=== PATIENT | male | born 1995 ===

== ENCOUNTER 2021-09-15 19:09 | Emergency (ER) | payer OTHER ==
[2021-09-15] MEDS ORDERED: Ketorolac 30 MG/ML SDV IM STA (20:03)
--- NOTE | 2021-09-15 21:00 | CR ---
INDICATION: Fall from 10 feet yesterday, left hip and pelvic pain TECHNIQUE: Single view pelvis with AP and Frogleg views left hip COMPARISONS: None available. FINDINGS: Femoral heads are well-seated in the acetabula. There is no displaced fracture, dislocation or acute osseous abnormality. There is no significant degenerative change. The soft tissues are unremarkable. IMPRESSION: No acute osseous abnormality. Dictated by Tristin Luevano MD @ 09/15/2021 8:57:55 PM (Electronically Signed)
--- NOTE | 2021-09-15 21:35 | CT ---
INDICATION: Left lateral lumbar pain after fall. COMPARISON: Pelvis and left hip examination from today. TECHNIQUE: CT examination of the lumbar spine is performed with spiral technique without contrast. Two mm thick axial, sagittal and coronal reconstructions were made. Please note that all CT scans at this facility use dose modulation, iterative reconstruction, and/or weight-based dosing when appropriate to reduce radiation dose to as low as reasonably achievable. FINDINGS: : There is grade 1 anterior subluxation of L5 on S1 related to bilateral pars interarticularis defects. There is moderate L5-S1 disc degenerative disease. There is a mild broad L5-S1 disc herniation which disc not result in spinal stenosis. There is prominent compression of both L5 nerve roots in the L5-S1 neural foramina produced by prominent bilateral foraminal zone disc bulges associated with the anterior subluxation. The perineural fat is completely effaced from around both L5 nerve roots. The rest of the lumbar vertebral bodies are in anatomic alignment. The lumbar vertebral bodies are normal in height with no sign of any compression fracture. There is no sign of any fracture of the posterior elements in the lumbar spine. The rest of the intervertebral discs are normal in height. There is no sign of additional disc bulge or herniation. There is no sign of any additional foraminal zone disc bulging. The visualized abdominal viscera is normal in appearance. IMPRESSION: No sign of acute osseous injury to the lumbar spine. Grade 1 anterior subluxation of L5 on S1 resulting from bilateral pars interarticularis defects. Prominent compression of both L5 nerve roots in the L5-S1 neural foramina from prominent bilateral foraminal zone disc bulging related to the anterior subluxation. Please note that all CT scans at this facility use dose modulation, iterative reconstruction, and/or weight-based dosing when appropriate to reduce radiation dose to as low as reasonably achievable. Dictated by Talon Ariza MD @ 09/15/2021 9:34:32 PM (Electronically Signed)
[2021-09-15] MEDS ORDERED: Cyclobenzaprine 10 MG Tab PO ONE (21:48)
--- NOTE | 2021-09-15 21:51 | EDM.PDOC ---
ED HPI GENERAL MEDICAL PROBLEM - General Chief Complaint: Back Pain or Injury Stated Complaint: FELL AT WORK YESTERDAY Time Seen by Provider: 09/15/21 19:20 - History of Present Illness INITIAL COMMENTS - FREE TEXT/NARRATIVE: CHIEF COMPLAINT(S): Left hip and back pain HISTORY OF PRESENT ILLNESS: This is a 26-year-old man without any significant past medical history who comes to the emergency department with a chief complaint of left hip and back pain. 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 He states that he fell approximately 10 feet and did hit the back of his head but denied any loss of consciousness. He currently denies any neck pain, bowel incontinence, urinary incontinence, saddle anesthesia. He states that he is mainly experiencing pain in his left hip and left lower back. He currently rates his pain as 6 out of 10 and this pain does not radiate anywhere. He has not yet tried anything for pain other than ibuprofen which has not helped. There is exacerbating factors including movement. He denies any numbness, tingling or weakness. He denies any chest pain or shortness of breath. REVIEW OF SYSTEMS: Constitutional: Denies fever, chills. Eyes: Denies eye pain Ears, Nose, Mouth, & Throat: Denies earache Cardiovascular: Denies chest pain Respiratory: Denies shortness of breath Gastrointestinal: Denies abdominal pain, nausea, vomiting, diarrhea, hematochezia. Genitourinary: Denies hematuria Skin:Denies a rash MSK: Positive for left hip and left lower back pain Neurological: Denies blurred vision, numbness, tingling, weakness, head injury or loss of consciousness Psychiatric: Denies depression PAST MEDICAL HISTORY: As per history of present illness and as reviewed below otherwise noncontributory. SURGICAL HISTORY: As per history of present illness and as reviewed below otherwise noncontributory. SOCIAL HISTORY: As per history of present illness and as reviewed below otherwise noncontributory. FAMILY HISTORY: As per history of present illness and as reviewed below otherwise noncontributory. EXAMINATION OF ORGAN SYSTEMS/BODY AREAS: Constitutional: Blood pressure was 143/86, heart rate 91, respiratory rate 18 with an oxygen saturation 98% on room air. Temperature 36.3 General: Young man who does not appear to be in acute distress Psychiatric: Appropriate mood and affect. Eyes: No scleral icterus or conjunctival erythema ENMT: Moist mucous membranes. No pharyngeal erythema no stridor, drooling, trismus Cardiovascular: Regular, rate, and rhythm. No gallops, murmurs, or rubs. Bilateral upper extremity pulses symmetric and intact. No peripheral edema. No JVD. Respiratory: Lungs clear to auscultation bilaterally. No wheezes, rales, or rhonchi. Gastrointestinal: Soft, non-tender, non-distended. Normoactive bowel sounds Genitourinary: No suprapubic tenderness Musculoskeletal: Normal range of motion. There is no cervical, thoracic, or lumbar tenderness. There is left hip tenderness and superior pelvic girdle tenderness. There is left paraspinal tenderness on the lumbar region. Skin: No lesions or abrasions. Neurological: Alert, GCS 15 distal sensation is intact. Gait is normal. MEDICAL DECISION MAKING AND COURSE IN THE ED WITH INTERPRETATION/REVIEW OF DIAGNOSTIC STUDIES: This is a 26-year-old man without any significant past medical history who comes to the emergency department with left hip and left lower paraspinal muscle tenderness. At this time we will obtain a left hip and pelvic x-ray. I do not believe any lumbar x-rays are needed given that there is no midline tenderness however the patient insists on obtaining imaging. Will obtain a CT of his lumbar spine without contrast for further evaluation of any abnormality. We will provide the patient with Toradol for pain relief and provide him with Flexeril for muscle relaxants. DDx: Musculoskeletal strain, hip fracture The radiological images were viewed by myself along with reading the report from the radiologist. Left hip with pelvis does not reveal any fracture or dislocation. Lumbar CT without contrast does not reveal any fracture or dislocation. There is evidence of a disc bulge compressing both L5 nerve roots. After imaging I did discuss results with patient. I discussed symptomatic treatment at this home and exercises. At this time I did discuss that he should follow-up with his primary care physician for reevaluation. He was amenable discharge at this time and had no further questions. He was given strict return precautions DISPOSITION: The patient was discharged home in stable condition. The patient will follow up with primary care physician in 3 to 5 days CONDITION: Fair PROCEDURES: None FINAL IMPRESSION(S)/DIAGNOSES: 1. Acute mechanical fall 2. Acute left hip contusion 3. Acute lumbar bulging disc Yonny Pizano M.D. back Pain Score (Numeric/FACES): 6 - Related Data Allergies Allergy/AdvReac Type Severity Reaction Status Date / Time No Known Allergies Allergy Verified 09/15/21 19:27 Home Meds: Home Meds Acetaminophen [Tylenol Extra Strength] 1,000 mg PO Q6HR #56 tablet 09/15/21 [Rx] Ibuprofen 400 mg PO Q6HR #28 tablet 09/15/21 [Rx] methocarbamoL [Methocarbamol] 1,500 mg PO TID #42 tablet 09/15/21 [Rx] Past Medical History - Past Health History Medical/Surgical History: Denies Medical/Surgical History - Infectious Disease History Infectious Disease History: Reports: Chicken Pox Social & Family History - Family History Family Medical History: No Pertinent Family History - Tobacco Use Tobacco Use Status *Q: Current Some Day Tobacco User Years of Tobacco use: 8 Packs/Tins Daily: 0.2 - Caffeine Use Caffeine Use: Reports: Coffee, Soda - Recreational Drug Use Recreational Drug Use: No ED ROS GENERAL - Review of Systems Review Of Systems: See Below ED EXAM, GENERAL - Physical Exam Exam: See Below Course - Vital Signs Last Recorded V/S: Last Vital Signs Temp 36.3 C 09/15/21 19:23 Pulse 81 09/15/21 22:14 Resp 18 09/15/21 22:14 BP 123/65 09/15/21 22:14 Pulse Ox 95 09/15/21 22:14 - Orders/Labs/Meds Meds: Medications Discontinued Medications Generic Name Dose Route Start Last Admin Trade Name Meera PRN Reason Stop Dose Admin Cyclobenzaprine HCl 10 mg 09/15/21 21:48 09/15/21 21:56 Cyclobenzaprine 10 Mg Tab PO 09/15/21 21:49 10 mg ONETIME ONE Administration Ketorolac Tromethamine 30 mg 09/15/21 20:03 09/15/21 20:14 Ketorolac 30 Mg/Ml Sdv IM 09/15/21 20:04 30 mg ONETIME STA Administration Departure - Departure Time of Disposition: 21:50 Disposition: Home, Self-Care 01 Condition: Fair Clinical Impression: Contusion, hip, Bulging disc - Discharge Information *PRESCRIPTION DRUG MONITORING PROGRAM REVIEWED*: No *COPY OF PRESCRIPTION DRUG MONITORING REPORT IN PATIENT DAVID: No Prescriptions: Ibuprofen 400 mg PO Q6HR #28 tablet methocarbamoL [Methocarbamol] 1,500 mg PO TID #42 tablet Acetaminophen [Tylenol Extra Strength] 1,000 mg PO Q6HR #56 tablet Instructions: Contusion, [id number], Herniated Disk, [id number], Herniated Disk Rehab-SportsMed Referrals: PCP,None [Primary Care Provider] - Forms: ED Department Discharge Additional Instructions: You were evaluated today on an emergent basis. At this time he did not have any evidence of any broken bones. There is some evidence of a disc bulge in your lower back. It is hard to tell if this is from the fall or if this was from prior to the injury. However I recommend use Tylenol and Motrin as described below in addition to Robaxin for symptomatic relief. If you have any trouble urinating, defecating on yourself, or you have numbness after using #2 I want you to return to the emergency department. Otherwise it is important that you rest and follow-up with your primary care physician in 3 to 5 days for reevaluation. Please use: Tylenol 500-1000mg every 6 hours (DO NOT TAKE MORE THAN 4000mg in 1 day) Ibuprofen 400mg every 6 hours (Take with food as it can cause ulcers, GI upset) Example schedule: 8:00 AM (Tylenol 500-1000mg) 11:00 AM (Ibuprofen 400mg) 2:00 PM (Tylenol 500-1000mg) 5:00 PM (Ibuprofen 400mg) In addition to Tylenol and Motrin you may use over the counter creams such as Voltaren Cream or Lidocaine Cream (Lidoderm) as needed 4 times a day for symptomatic relief. Ice the area 20 minutes 4 times per day [facility] [address] [place] [address] [id number] [address] The patient is informed of any results of their evaluation and diagnostic workup and all questions are answered. They are given discharge instructions and return precautions. The patient is stable for discharge. The patient states they understand and agree with the plan and that they will return if their symptoms get worse or if they have any new concerns. The following information is given to patients seen in the emergency department who are being discharged to home. This information is to outline your options f or follow-up care. We provide all patients seen in our emergency department with a follow-up referral. The need for follow-up, as well as the timing and circumstances, are variable depending upon the specifics of your emergency department visit. If you don't have a primary care physician on staff, we will provide you with a referral. We always advise you to contact your personal physician following an emergency department visit to inform them of the circumstance of the visit and for follow-up with them and/or the need for any referrals to a consulting specialist. The emergency department will also refer you to a specialist when appropriate. This referral assures that you have the opportunity for follow-up care with a specialist. All of these measure are taken in an effort to provide you with optimal care, which includes your follow-up. Under all circumstances we always encourage you to contact your private physician who remains a resource for coordinating your care. When calling for follow-up care, please make the office aware that this follow-up is from your recent emergency room visit. If for any reason you are refused follow-up, please contact the [facility] Emergency Department at and asked to speak to the emergency department charge nurse. Sepsis Event Note (ED) - Evaluation Sepsis Screening Result: No Definite Risk - Focused Exam Vital Signs: Vital Signs Temp Pulse Resp BP Pulse Ox 09/15/21 22:14 81 18 123/65 95 09/15/21 21:28 76 16 128/61 96 09/15/21 19:23 36.3 C 91 18 143/86 H 98
== END 2021-09-15 22:15 | disposition home or self-care (01) ==
LOC: MW.ED 19:09
DX: S70.02XA Contusion of left hip, initial encounter (principal); M51.26 Other intervertebral disc displacement, lumbar region; Z72.0 Tobacco use; W17.89XA Other fall from one level to another, initial encounter
CPT/HCPCS: 72131; 73502; 96372; 99283; A9270; J1885

== ENCOUNTER 2021-11-09 15:32 | Emergency (ER) | payer OTHER ==
[2021-11-09] MEDS ORDERED: Ketorolac 60 MG/2 ML SDV IM ONE (19:32)
[2021-11-09] MEDS ORDERED: Acetaminophen/HYDROcodone 325-5 MG Tab PO ONE (19:33)
== END 2021-11-09 20:26 | disposition home or self-care (01) ==
LOC: MW.ED 15:32
DX: S62.397A Other fracture of fifth metacarpal bone, left hand, initial encounter for closed fracture (principal); W50.0XXA Accidental hit or strike by another person, initial encounter
CPT/HCPCS: 29125; 73130; 96372; 99283; A9270; J1885

== ENCOUNTER 2022-01-24 17:32 | Emergency (ER) | payer OTHER ==
[2022-01-24] MEDS ORDERED: Diphtheria,Pertussis(Acell),Tetanus Vaccine 0.5 ML Syringe IM ONE (18:00)
== END 2022-01-24 18:16 | disposition home or self-care (01) ==
LOC: MW.ED 17:32
DX: S99.922A Unspecified injury of left foot, initial encounter (principal); Z23 Encounter for immunization; W22.8XXA Striking against or struck by other objects, initial encounter
CPT/HCPCS: 90471; 90715; 99283